=== PATIENT | male | born 1970 | race Caucasian/White ===

== ENCOUNTER 2016-09-23 13:28 | Emergency (ER) | payer SELFPAY ==
[~2016-09-23 13:28] MED LIST: APIX5TAB PO; DILT-64 PO; FURO1TAB62 PO
[2016-09-23 13:30] VITALS: BP 137/75; PULSE 80; RESP 20; TEMP 97.5; O2SAT 97
--- NOTE | 2016-09-23 14:20 | PD ---
HPI Chief Complaint: Skin Problem Time Seen by Provider: 14:12 (Natalie Bonilla) Time Seen by Provider: 14:05 (Isaiah Rush MD) Travel History International Travel<30 days: No Contact w/Intl Traveler<30days: No Traveled to known affect area: No (Natalie Bonilla) History of Present Illness HPI 46 YO male with PMH of A FIB presents to the ED for evaluation of bilateral leg swelling, redness and pain. Patient states the swelling has been present for ~2 weeks, but redness and pain started overnight. Endorses "feeling flu-like" with shaking fevers and malaise overnight. Denies injury to the area. 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 (Natalie Bonilla) PFSH Past Medical History Atrial Fibrillation: Yes Cardiovascular Problems: Yes Diminished Hearing: No (Natalie Bonilla) Past Surgical History Other Surgery: Yes (umbicial hernia ) (Natalie Bonilla) Social History Alcohol Use: No Tobacco Use: No Substance Use: No (Natalie Bonilla) Allergies-Medications (Allergen,Severity, Reaction): Coded Allergies: No Known Allergies (Unverified , 09/23/16) Reported Meds & Prescriptions Reported Meds & Active Scripts Active Ibuprofen 800 Mg Tab 800 Mg PO Q8H PRN Clindamycin (Clindamycin HCl) 150 Mg Cap 450 Mg PO Q6H 10 Days Bactrim DS (Sulfamethoxazole-Trimethoprim) 800-160 Mg Tab 1 Tab PO BID Reported Lasix (Furosemide) 20 Mg Tab 20 Mg PO BID Eliquis (Apixaban) 5 Mg Tab 5 Mg PO BID Diltiazem CD 24 HR 240 Mg Caper 240 Mg PO DAILY (Isaiah Rush MD) Review of Systems Except as stated in HPI: all other systems reviewed are Neg (Natalie Bonilla ) Physical Exam Narrative GENERAL: Well-nourished, well-developed obese, nontoxic-appearing white male in no acute distress. SKIN: Focused skin assessment warm/dry. There is venous stasis dermatitis to the knees bilaterally. There is a smaller area of dense non-blanching redness on the anterior aspect of both shins. No warmth, no cellulitic streaking noted. HEAD: Normocephalic. EYES: No scleral icterus. No injection or drainage. NECK: Supple, trachea midline. No JVD or lymphadenopathy. CARDIOVASCULAR: Regular rate and rhythm without murmurs, gallops, or rubs. 2+ DP and radial pulses bilaterally. RESPIRATORY: Breath sounds equal bilaterally. No accessory muscle use. GASTROINTESTINAL: Abdomen soft, non-tender, nondistended. MUSCULOSKELETAL: No cyanosis. 2+ edema to the mid mcgraw bilaterally. Mild tenderness to palpation around the left medial malleolus. Patient is able to flex and extend the knees, ankles and toes bilaterally. Neurovascularly intact. BACK: Nontender without obvious deformity. No CVA tenderness. (Natalie Bonilla) Data Data Last Documented VS Vital Signs Date Time Temp Pulse Resp B/P Pulse Ox O2 Delivery O2 Flow Rate FiO2 09/23/16 13:30 97.5 80 20 137/75 97 Room Air (Isaiah Rush MD) Orders Clindamycin Inj (Cleocin Inj) (09/23/16 14:30) Furosemide Inj (Lasix Inj) (09/23/16 14:30) Furosemide (Lasix) (09/23/16 14:45) (Isaiah Rush MD) MDM Medical Decision Making Medical Screen Exam Complete: Yes Emergency Medical Condition: Yes Interpretation(s) EKG rate 73, sinus rhythm, normal axis, normal intervals. No ST changes. Reviewed by Dr. Rush. Differential Diagnosis cellulitis versus vasculitis versus edema versus venous stasis dermatitis versus other Narrative Course 46 YO male with PMH of A FIB presents to the ED for evaluation of bilateral leg swelling, redness and pain. Patient states the swelling has been present for ~2 weeks, but redness and pain started overnight. Endorses "feeling flu-like" with shaking fevers and malaise overnight. Denies injury to the area. 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 Patient was seen at [facility] ED and admission was recommended. The patient refused transport by ambulance and mistakenly came to the main instead of [facility] as planned. Patient afebrile on presentation. He is nontoxic appearing. There is edema and chronic vasculitis noted on the bilateral lower extremities. This is non-blanching, deeper in color and mildly tender on the anterior aspect of the mcgraw. No fluctuance, warmth or cellulitic streaking noted. There is a leukocytosis of 12 ,000. Review of the record reveals blood cultures were obtained and he was administered a gram of IV Zosyn in [place]. He was administered 40 of Lasix by mouth. I think a trial of outpatient antibiotics is reasonable for this patient. The patient prefers this plan to admission as he recently began a new job. The patient was counseled to resume Eliquis. He does not have primary care , so was given information for the [place] clinic. We discussed reasons to return to the ED. He is provided a course of clindamycin and Bactrim as well as anti-inflammatories. He was instructed to elevate the legs, take all antibiotics as prescribed, follow-up as discussed. He indicated understanding of instructions and is agreeable to the care plan. He stable and discharged home. (Natalie Bonilla) Diagnosis Primary Impression: Bilateral lower leg cellulitis Referrals: [facility] Patient Instructions: Cellulitis (ED), General Instructions, Leg Edema (ED) Departure Forms: Tests/Procedures, Work Release Enter return to work date: Sep 24, 2016 Special Instructions: No restricitons. Additional Instructions: Rest, hydrate. Elevate the legs as you are able. Consider wearing compression stockings daily to alleviate dependent edema. Take all antibiotics as prescribed, even if your symptoms resolve. Resume Lasix as previously prescribed. Monitor for worsening symptoms as discussed. Follow up with the [facility] as discussed. Return to the ED for any urgent or emergent medical condition. Med/Other Pt SpecificInfo: Prescription(s) given (Natalie Bonilla) Scripts Ibuprofen 800 Mg [id number] Mg PO Q8H PRN (Pain/Inflammation) #20 TAB Ref 0 Prov:Isaiah Rush MD 09/23/16 Clindamycin 150 Mg [id number] Mg PO Q6H 10 Days Ref 0 Prov:Isaiah Rush MD 09/23/16 Sulfamethoxazole-Trimethoprim (Bactrim DS)800-160 Mg Tab1 Tab PO BID #14 TAB Ref 0 Prov:Isaiah Rush MD 09/23/16 Disposition: 01 DISCHARGE HOME Condition: Stable Natalie Bonilla Sep 23, 2016 14:20 Isaiah Rush MD Sep 25, 2016 17:18
[2016-09-23] MEDS ORDERED: CLINDAMYCIN INJ 900 MG in SODIUM CHLORIDE 0.9% INJ 100 ML IV ONE (14:30)
[2016-09-23] MEDS ORDERED: FUROSEMIDE 20 MG/2 ML VIAL IV PUSH ONE (14:30)
[2016-09-23] MEDS ORDERED: FUROSEMIDE 40 MG TAB PO ONE (14:45)
[2016-09-23] MEDS ORDERED: IBUP800T23 PO (14:47)
[2016-09-23] MEDS ORDERED: BACT800T5 PO (14:47)
[2016-09-23] MEDS ORDERED: CLIN1CAP5 PO (14:47)
--- NOTE | 2016-09-23 15:01 | PD ---
Physical Exam Date Seen by Provider: Sep 23, 2016 Time Seen by Provider: 14:57 Narrative 46-year-old male came to the emergency room being seen at the [place] emergency room earlier today. He was planned to be [facility] to [facility] for admission for bilateral leg cellulitis. However patient decided to drive himself in and came here. Patient was seen by the PA and I'm supervising her. He has history of atrial fibrillation and bilateral pedal edema. He says. Edema has been going on for months. However for past 1 week he has started noticing some rash on the legs. Since yesterday the rash became more confluent and bright red in color on the lower part of his legs. It is circumferential. Nonblanching. Upon asking patient says he did have chills last night. He has not done any dose of antibiotic at home. However he did get a dose of Zosyn IV in [place] ER. There was blood test along with blood culture ordered. His white blood cell count was 12,000. Patient's temperature was 99.2 in triage at the other institution. He is afebrile here. He is not on any blood thinners. Rest of his vital signs were stable. Given this history the decision was to give him by mouth clindamycin and Bactrim and discharge him home on those. Patient is comfortable with that plan. He was recommended to be restarted on Eliquis. He was supposed to be on liquids but stopped taking it because a nurse friend of his told him about the side effects of Eliquis. Data Data Last Documented VS Vital Signs Date Time Temp Pulse Resp B/P Pulse Ox O2 Delivery O2 Flow Rate FiO2 09/23/16 13:30 97.5 80 20 137/75 97 Room Air Orders Clindamycin Inj (Cleocin Inj) (09/23/16 14:30) Furosemide Inj (Lasix Inj) (09/23/16 14:30) Furosemide (Lasix) (09/23/16 14:45) MDM Supervised Visit with [facility]: Yes Diagnosis Primary Impression: Bilateral lower leg cellulitis Referrals: [facility] Patient Instructions: General Instructions, Cellulitis (ED), Leg Edema (ED) Departure Forms: Work Release, Enter return to work date: Special Instructions: No restricitons. Tests/Procedures Additional Instruction: Rest, hydrate. Elevate the legs as you are able. Consider wearing compression stockings daily to alleviate dependent edema. Take all antibiotics as prescribed, even if your symptoms resolve. Resume Lasix as previously prescribed. Monitor for worsening symptoms as discussed. Follow up with the [facility] as discussed. Return to the ED for any urgent or emergent medical condition. Scripts Ibuprofen 800 Mg [id number] Mg PO Q8H PRN (Pain/Inflammation) #20 TAB Ref 0 Prov:Isaiah Rush MD 09/23/16 Clindamycin 150 Mg [id number] Mg PO Q6H 10 Days Ref 0 Prov:Isaiah Rush MD 09/23/16 Sulfamethoxazole-Trimethoprim (Bactrim DS)800-160 Mg Tab1 Tab PO BID #14 TAB Ref 0 Prov:Isaiah Rush MD 09/23/16 Disposition: 01 DISCHARGE HOME Condition: Stable Isaiah Rush MD Sep 23, 2016 15:01
== END 2016-09-23 14:55 | disposition home or self-care (01) ==
LOC: NEPE 13:28
DX: L03.115 Cellulitis of right lower limb (principal); L03.116 Cellulitis of left lower limb; I48.91 Unspecified atrial fibrillation; R50.9 Fever, unspecified; R53.81 Other malaise
CPT/HCPCS: 99283